=== PATIENT | male | born 1950 | race Caucasian/White ===

== ENCOUNTER 2017-08-27 13:36 | Inpatient (IN) | payer MEDICARE ==
[~2017-08-27] VITALS: Ht 170.2 cm; Wt 95.8 kg
[2017-08-27] MEDS ORDERED: IV NORMAL SALINE 1,000ML 1,000 ML IV SCH (14:03)
[2017-08-27 14:15] LABS: BASO # 0.1 x10^3/uL (0.0-0.2); BASO % 1 % (0-3); EOS # 0.7 x10^3/uL (0.0-0.7); EOS % 10 % (0-3); HEMATOCRIT 42.5 % (39.0-53.0); LYMPH # 1.6 x10^3/uL (1.0-4.8); LYMPH % 22 % (24-48); MEAN CORPUSCULAR HEMOGLOBIN 30 pg (25-35); MEAN CORPUSCULAR HGB CONC 35 g/dL (31-37); MEAN CORPUSCULAR VOLUME 85 fL (79-100); MONO # 0.6 x10^3/uL (0.0-1.1); MONO % 9 % (0-9); NEUT # 4.2 x10^3uL (1.8-7.7); NEUT % 58 % (31-73); PLATELET COUNT 215 x10^3/uL (140-400); RED BLOOD COUNT 4.98 x10^6/uL (4.30-5.70); RED CELL DISTRIBUTION WIDTH 13.8 % (11.5-14.5); WHITE BLOOD COUNT 7.2 x10^3/uL (4.0-11.0)
[2017-08-27 14:27] LABS: ALBUMIN 3.7 g/dL (3.4-5.0); CALCIUM 8.9 mg/dL (8.5-10.1); CREATININE 0.7 mg/dL (0.7-1.3); DIRECT BILIRUBIN 0.1 mg/dL (0.0-0.2); GFR 112.1; POTASSIUM 4.6 mmol/L (3.5-5.1); TOTAL BILIRUBIN 0.5 mg/dL (0.2-1.0); TOTAL PROTEIN 6.9 g/dL (6.4-8.2)
[2017-08-27] MEDS ORDERED: ONDANSETRON PF 4 MG/2 ML VIAL. IV ONE (14:30)
--- NOTE | 2017-08-27 14:39 | RAD ---
EXAM: CT abdomen/pelvis without contrast. HISTORY: Right flank pain, history of renal stones. TECHNIQUE: Computed tomography of the abdomen and pelvis was performed without intravenous contrast. COMPARISON: None. FINDINGS: Lung windows through the visualized portions of the bases reveal mild atelectasis. Coronary atherosclerotic calcifications are noted. Bone windows reveal no suspicious lesions. There is mild superior endplate depression at L2 which may be chronic or subacute. There are no renal or ureteral calculi. Renal cysts on the right measure up to 2.8 cm. Peripelvic cysts are noted on the left. There is no hydronephrosis or perinephric stranding. There are no clearly solid renal lesions without contrast. The liver, gallbladder, pancreas, adrenal glands and spleen are unremarkable. There are no pathologically enlarged lymph nodes. Small circumscribed foci within the retroperitoneal fat may be normal or indicate small regions of chronic fat necrosis. Vasa deferentia calcifications are usually seen in the setting of diabetes. There is no obstruction. The appendix is not inflamed. Bilateral inguinal hernias are moderate on the right and small on the left. IMPRESSION: 1. No renal or ureteral calculi. 2. Subacute or chronic mild superior plate compression deformity at L2. Correlate for this as a cause of pain. 3. Moderate right and small left inguinal hernias containing only fat. *One or more of the following individualized dose reduction techniques were utilized for this examination: 1. Automated exposure control. 2. Adjustment of the mA and/or kV according to patient size. 3. Use of iterative reconstruction technique.
--- NOTE | 2017-08-27 14:52 | PHYS DOC ---
Past History Past Medical History: Diabetes, GERD, High Cholesterol, Hypertension, Kidney Stones Past Surgical History: Other Alcohol Use: None Drug Use: None Adult General Chief Complaint Chief Complaint: FLANK PAIN HPI HPI 67-year-old male presenting to the emergency department today with left-sided flank pain. His pain is sharp and radiates into his groin from his back. Denies any hematuria. He denies changes in stool pattern. He denies fevers chills has had nausea without vomiting. It is a sharp shooting pain. It was more severe prior to arrival and currently is feeling better. Review of systems is negative for chest pain shortness of breath fevers chills or vomiting. All other review of systems is negative unless otherwise noted in history of present illness. ED course: 59-year-old male with a history of kidney stones presenting the emergency department today with what he states is "the same as my previous kidney stone". Upon arrival the patient is afebrile with a normal heart rate. Pertinent physical exam findings show mild left CVA tenderness without any abdominal tenderness. Blood work obtained along with urine and CT the abdomen pelvis. CT abd pelvis shows no signs of stones. On reexamination the patient continues to have pain. We redosed the patient's pain medications. I discussed the case with Dr. Logan who accepted the patient for admission to our hospital. I will add on a CT angiogram of the patient's abdomen which Dr. Kendall agrees to follow-up on. We'll obtained a bed for the patient in the hospital for further evaluation workup and care. Review of Systems Review of Systems SEE ABOVE. Current Medications Current Medications Current Medications Medications (Trade) Dose Ordered Sig/Cassandra Start Time Stop Time Status Last Admin Dose Admin Fentanyl Citrate (Fentanyl 2ml Vial) 25 mcg PRN Q15MIN PRN 08/27/17 14:15 08/28/17 14:14 08/27/17 14:34 25 MCG Ondansetron HCl (Zofran) 4 mg 1X ONCE 08/27/17 14:30 08/27/17 14:31 DC 08/27/17 14:34 4 MG Sodium Chloride 1,000 ml @ 1,000 mls/hr Q1H 08/27/17 14:03 08/27/17 15:02 08/27/17 14:34 1,000 MLS/HR Allergies Allergies Allergies Coded Allergies Type Severity Reaction Last Updated Verified No Known Drug Allergies 10/21/16 No Physical Exam Physical Exam SEE ABOVE Constitutional: Well developed, well nourished, no acute distress, non-toxic appearance. HENT: Normocephalic, atraumatic, bilateral external ears normal, oropharynx moist, no oral exudates, nose normal. [] Eyes: PERRLA, EOMI, conjunctiva normal, no discharge. [] Neck: Normal range of motion, no tenderness, supple, no stridor. Cardiovascular:Heart rate regular rhythm, no murmur [] Lungs & Thorax: Bilateral breath sounds clear to auscultation Abdomen: Bowel sounds normal, soft, no tenderness, no masses, no pulsatile masses. [] Skin: Warm, dry, no erythema, no rash. [] Back: No tenderness midline, left CVA tenderness. Extremities: No tenderness, no cyanosis, no clubbing, ROM intact, no edema. [] Neurologic: Alert and oriented X 3, normal motor function, normal sensory function, no focal deficits noted. [] Psychologic: Affect normal, judgement normal, mood normal. [] Current Patient Data Vital Signs Vital Signs Date Time Temp Pulse Resp B/P (MAP) Pulse Ox O2 Delivery O2 Flow Rate FiO2 08/27/17 14:34 20 98 08/27/17 13:36 98.0 96 Room Air Lab Results Laboratory Tests Test 08/27/17 14:00 White Blood Count 7.2 x10^3/uL (4.0-11.0) Red Blood Count 4.98 x10^6/uL (4.30-5.70) Hemoglobin 15.0 g/dL (13.0-17.5) Hematocrit 42.5 % (39.0-53.0) Mean Corpuscular Volume 85 fL (79-100) Mean Corpuscular Hemoglobin 30 pg (25-35) Mean Corpuscular Hemoglobin Concent 35 g/dL (31-37) Red Cell Distribution Width 13.8 % (11.5-14.5) Platelet Count 215 x10^3/uL (140-400) Neutrophils (%) (Auto) 58 % (31-73) Lymphocytes (%) (Auto) 22 % (24-48) L Monocytes (%) (Auto) 9 % (0-9) Eosinophils (%) (Auto) 10 % (0-3) H Basophils (%) (Auto) 1 % (0-3) Neutrophils # (Auto) 4.2 x10^3uL (1.8-7.7) Lymphocytes # (Auto) 1.6 x10^3/uL (1.0-4.8) Monocytes # (Auto) 0.6 x10^3/uL (0.0-1.1) Eosinophils # (Auto) 0.7 x10^3/uL (0.0-0.7) Basophils # (Auto) 0.1 x10^3/uL (0.0-0.2) Sodium Level 138 mmol/L (136-145) Potassium Level 4.6 mmol/L (3.5-5.1) Chloride Level 104 mmol/L (98-107) Carbon Dioxide Level 23 mmol/L (21-32) Anion Gap 11 (6-14) Blood Urea Nitrogen 19 mg/dL (8-26) Creatinine 0.7 mg/dL (0.7-1.3) Estimated GFR (Cockcroft-Gault) 112.1 Glucose Level 285 mg/dL (70-99) H Calcium Level 8.9 mg/dL (8.5-10.1) Total Bilirubin 0.5 mg/dL (0.2-1.0) Direct Bilirubin 0.1 mg/dL (0.0-0.2) Aspartate Amino Transferase (AST) 27 U/L (15-37) Alanine Aminotransferase (ALT) 36 U/L (16-63) Alkaline Phosphatase 107 U/L (46-116) Total Protein 6.9 g/dL (6.4-8.2) Albumin 3.7 g/dL (3.4-5.0) Lipase 268 U/L (73-393) EKG EKG [] Radiology/Procedures Radiology/Procedures [] Course & Med Decision Making Course & Med Decision Making Pertinent Labs and Imaging studies reviewed. (See chart for details) [] Dragon Disclaimer Dragon Disclaimer This electronic medical record was generated, in whole or in part, using a voice recognition dictation system. Departure Departure: Impression: Primary Impression: Flank pain Disposition: ADMITTED INPATIENT Condition: IMPROVED Referrals: PCP,UNKNOWN (PCP) Scripts Hydrocodone Bit/Acetaminophen (HYDROCODONE-APAP 5-325 ) 1 Each Tablet 1 TAB PO PRN Q6HRS Y for PAIN, #10 TAB 0 Refills Prov: DB ROGEL MD 08/27/17 DB ROGEL MD Aug 27, 2017 14:52
[2017-08-27 16:15] LABS: CLARITY,URINE CLEAR; COLOR,URINE YELLOW
[2017-08-27] MEDS ORDERED: HYDROmorphone PF 1 MG/ML DISP.SYRIN IM ONE (16:15)
[2017-08-27 16:16] LABS: BACTERIA,URINE 0 /HPF (0-FEW); BILIRUBIN,URINE NEG (NEG); GLUCOSE,URINE >=1000 mg/dL (NEG); NITRITE,URINE NEG (NEG); RBC,URINE OCC /HPF (0-2); UROBILINOGEN,URINE 0.2 mg/dL (0.2 mg/dL); WBC,URINE OCC /HPF (0-4)
[2017-08-27 16:17] LABS: HYALINE CASTS, URINE FEW /HPF
[2017-08-27] MEDS ORDERED: HYDR-2758 PO (16:23)
[2017-08-27] MEDS ORDERED: ONDANSETRON PF 4 MG/2 ML VIAL. IV PRN (18:00)
[2017-08-27] MEDS ORDERED: CONTRAST GIVEN MC PRN (18:30)
[2017-08-27] MEDS ORDERED: IOHEXOL 300 MG/ML 75 ML VIAL. IV ONE (19:00)
--- NOTE | 2017-08-27 20:07 | RAD ---
CTA of the abdomen and pelvis with contrast 08/27/2017 CLINICAL HISTORY: Left-sided back and groin pain. TECHNIQUE: After the intravenous administration of 75 cc of Omnipaque 300, contiguous, 0.625 mm axial sections were obtained through the abdomen and pelvis. Multiplanar 3-D and volume rendered 3-D reconstructed images were obtained. One or more of the following individualized dose reduction techniques were utilized for this study: 1. Automated exposure control. 2. Adjustment of the mA and/or kV according to patient size. 3. Use of iterative reconstruction technique. Findings: Images through the lung bases demonstrate minimal dependent subsegmental atelectasis bilaterally. The liver parenchyma has a decreased attenuation consistent with mild fatty infiltration. The spleen, pancreas, and adrenal glands are within normal limits. Low-attenuation lesions are seen involving both kidneys. These measure 5 mm to 3.6 cm in size. They likely represent cysts. The gallbladder is contracted. No free fluid or free air is seen within the abdomen. Air and stool seen throughout the colon. There is no evidence of bowel obstruction. The appendix is well-visualized and is within normal limits. Images through the pelvis was demonstrate the urinary bladder distended with urine. No free fluid is seen. Minimal S-shaped curvature of the thoracolumbar spine is noted. Degenerative changes are seen involving the thoracic and throughout the lumbar spine and both hips. CTA images demonstrate mild to moderate scattered atherosclerotic plaque formation involving the abdominal aorta and its branches. The abdominal aorta tapers normally. Solitary renal arteries are seen bilaterally. There are patent. The origins of the celiac trunk, superior mesenteric artery and inferior mesenteric artery are patent. Mild to moderate scattered atherosclerotic plaque formation is seen involving the common iliac arteries and their branches. No area of stenosis or occlusion is seen. IMPRESSION: No acute abnormality is seen. Electronically signed by: Samir Rothman MD (08/27/2017 8:04 PM) [facility]
[2017-08-27] MEDS ORDERED: LIRA0.6P2 SQ (20:55)
[2017-08-27] MEDS ORDERED: ATOR40TA59 PO (20:55)
[2017-08-27] MEDS ORDERED: METF10002 PO (20:55)
[2017-08-27] MEDS ORDERED: GLIM4TAB2 PO (20:55)
[2017-08-27] MEDS ORDERED: LISI-334 PO (20:55)
[2017-08-27] MEDS ORDERED: METO50TA29 PO (20:56)
[2017-08-27] MEDS ORDERED: INSU100I13 SQ (20:56)
[2017-08-27] MEDS ORDERED: CANA300T PO (20:56)
[2017-08-27] MEDS ORDERED: ASPI81TA50 PO (20:57)
[2017-08-27] MEDS ORDERED: OMEP40CA5 PO (20:57)
[2017-08-27] MEDS ORDERED: INSULIN ASPART 300 UNITS/3 ML INSULN.PEN SQ ONE (21:00)
[2017-08-27 21:04] VITALS: BP 148/63
[2017-08-27] MEDS: IV NORMAL SALINE 1,000ML 1,000 ML IV SCH (21:16)
[2017-08-27] MEDS ORDERED: Influenza vaccine per PROTOCOL. MC PRN (22:00)
[2017-08-28] MEDS: MORPHINE SULFATE 2 MG/ML DISP.SYRIN. IV PRN ×3 (00:18→08:45)
[2017-08-28 04:49] VITALS: BP 148/63
[2017-08-28] MEDS: IV NORMAL SALINE 1,000ML 1,000 ML IV SCH ×2 (04:55→15:16)
[2017-08-28 05:48] VITALS: BP 145/68
[2017-08-28 06:38] LABS: BASO % 1 % (0-3); EOS # 0.3 x10^3/uL (0.0-0.7); EOS % 6 % (0-3); HEMATOCRIT 41.4 % (39.0-53.0); HEMOGLOBIN 14.4 g/dL (13.0-17.5); LYMPH # 0.9 x10^3/uL (1.0-4.8); LYMPH % 15 % (24-48); MEAN CORPUSCULAR HEMOGLOBIN 30 pg (25-35); MEAN CORPUSCULAR HGB CONC 35 g/dL (31-37); MEAN CORPUSCULAR VOLUME 86 fL (79-100); MONO # 0.4 x10^3/uL (0.0-1.1); MONO % 7 % (0-9); NEUT # 4.4 x10^3uL (1.8-7.7); NEUT % 72 % (31-73); PLATELET COUNT 170 x10^3/uL (140-400); RED BLOOD COUNT 4.81 x10^6/uL (4.30-5.70); RED CELL DISTRIBUTION WIDTH 13.6 % (11.5-14.5); WHITE BLOOD COUNT 6.1 x10^3/uL (4.0-11.0)
[2017-08-28 06:49] LABS: CALCIUM 8.2 mg/dL (8.5-10.1); CREATININE 0.6 mg/dL (0.7-1.3); POTASSIUM 4.2 mmol/L (3.5-5.1)
[2017-08-28] MEDS: PANTOPRAZOLE 40 MG TABLET. PO SCH (07:58)
[2017-08-28] MEDS: GLIMEPIRIDE 2 MG TABLET PO SCH ×2 (07:58→16:56)
[2017-08-28] MEDS: LISINOPRIL 20 MG TABLET PO SCH (07:58)
[2017-08-28] MEDS: METOPROLOL SUCC 24HR ER 50 MG TAB.ER.24H. PO SCH (07:58)
[2017-08-28] MEDS: ASPIRIN ENTERIC COATED 81 MG TABLET.DR. PO SCH (07:58)
[2017-08-28] MEDS ORDERED: FLU VACC QS2017-18 (36MOS+)/PF 0.5 ML SYRINGE. VAX IM ONE (09:00)
[2017-08-28] MEDS: NON FORMULARY ITEM (Canagliflozin (Invokana) 300 MG) PO SCH (09:00)
[2017-08-28] MEDS: NON FORMULARY ITEM (Liraglutide (Victoza 3-Pak) 1.8 MG) SQ SCH (09:00)
[2017-08-28 10:50] VITALS: BP 148/67
[2017-08-28] MEDS: HYDROmorphone PF 2 MG/ML VIAL IV PRN (15:16)
[2017-08-28 15:17] VITALS: BP 178/73
[2017-08-28] MEDS: ACETAMINOPHEN 325 MG TABLET PO PRN (15:48)
--- NOTE | 2017-08-28 17:51 | HP ---
ADMIT DATE: 08/27/2017 HISTORY OF PRESENT ILLNESS: The patient is a 67-year-old male patient who came to the emergency room yesterday complaining of left-sided flank pain, sharp, radiating into his groin from his back to his left testicle. He denied any hematuria. Denied any changes in stool pattern. He denied any fever, chills, or rigors. It is more severe prior to arrival and currently slightly improved by the time he arrived to the emergency room. He described it as similar two previous episodes of nephrolithiasis during which he was admitted to this hospital, also in [place]. Patient was extensively investigated in the emergency room. He has no leukocytosis. His kidney function was normal. The urinalysis was basically unremarkable. There is no rbc's, no wbc's, and no bacteria. He has had a CT scan, which was basically unremarkable and specifically did not show any renal or ureteral calculi. She has subacute or chronic mild superior plate compression deformity at the L2 and moderate right and small left inguinal hernia containing only fat. The patient was admitted for pain control. We did a CT angio of the abdomen and pelvis and basically this showed no acute abnormalities seen. PAST MEDICAL HISTORY: Multiple episodes of nephrolithiasis, has type 2 diabetes, bronchial asthma, coronary artery disease status post PCI and stent deployment x4, hyperlipidemia, hypertension, gastric ulcers, benign prostatic hypertrophy. PAST SURGICAL HISTORY: Significant for stenting, has had cystoscopy, retrograde pyelography, and retrieval of stones, tonsillectomy, lipoma resection, esophagogastroduodenoscopy, and colonoscopy. ALLERGIES: He has no known drug allergies. MEDICATIONS: He is currently on following medications: He is on aspirin 81 mg once a day, atorvastatin 40 mg at bedtime. He is on Invokana 300 mg daily, glimepiride 4 mg twice a day. He is on Lantus insulin 30 units at bedtime, Victoza 1.8 mg subcutaneously daily, lisinopril 20 mg once a day, metformin 1000 mg twice a day, metoprolol succinate 50 mg once a day, omeprazole 40 mg once a day. FAMILY HISTORY: He has 2 brothers who are younger. One sister, older, has type 2 diabetes. His father at age of 83 because of bronchial asthma, COPD, and cancer. Mother at the age of 94 because of CVA. SOCIAL HISTORY: He is , has a son and daughter. He never smoked, does not drink alcohol or recreational drugs. 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 REVIEW OF SYSTEMS: The patient denied any blurring of vision, cataract, glaucoma or macular degeneration. Denied any earache, tinnitus, but he has severe sensorineural deafness. Denied any nosebleeds. He has stuffy nose, but no postnasal drip. Denied any sore throat, sore tongue, toothache, hoarseness of voice or difficulty swallowing. Denied any nausea, vomiting, diarrhea or constipation. Denied any hematemesis, melena, or hematochezia. Denied any dysuria, frequency or hematuria. He did complain of nocturia, postvoid dribbling, hesitancy and urgency, as well as nocturia. Denied any chest pain, shortness of breath, orthopnea, paroxysmal nocturnal dyspnea. Denied any cough, phlegm or hemoptysis. The only complaint is pain that started in left flank area going down to the groin and particularly to his left testicle. PHYSICAL EXAMINATION: GENERAL: On arrival to the emergency room, he looked well and was clearly in no apparent respiratory distress. No pallor, jaundice, cyanosis. No lymphadenopathy, no thyromegaly. No jugular venous distension. No lower limb edema. VITAL SIGNS: His heart rate was 96, blood pressure was 120/72, temperature was 98, respiratory rate 20, and oxygen saturation was 97%. HEAD, EYES, EARS, NOSE, AND THROAT: Showed normocephalic, atraumatic. NECK: Supple. HEART: Showed normal first and second heart sounds with no gallop, rub or murmur. CHEST: Clear to auscultation. No crepitation or rhonchi. ABDOMEN: Distended, soft, nontender. No guarding or rigidity. No organomegaly. All hernial orifices intact. Bowel sounds normal. There is no tenderness in the left costophrenic angle. NEUROLOGIC: He was awake, alert, responding appropriately. Cranial nerves intact. EXTREMITIES: She moves extremities without difficulty. He ambulates without assistance or assistive devices. LABORATORY DATA: On admission showed a white cell count of 7200, hemoglobin 15, hematocrit 42, MCV 85 and platelet count of 215,000 with normal manual differential. His chemistry showed a serum sodium of 138, potassium 4.6, chloride 104, bicarbonate 23, anion gap of 11, BUN 19, creatinine 0.7, estimated GFR was 112, glucose was 285, calcium was 8.9. Total bilirubin, AST, ALT, alkaline phosphatase were normal. His total protein was 6.9, albumin was 3.7. Urinalysis showed the urine was yellow, clear with a pH of 5, specific gravity of 1.020. The urine was negative for gluten. There was large amount of glucose, small amount of ketones. The urine was negative for blood, nitrite, leukocyte esterase. There was occasional rbc's, occasional wbc's, and no bacteria. DIAGNOSTIC DATA: As I stated earlier, he has a CT scan of the abdomen and pelvis, which showed no evidence of renal or ureteral calculi, subacute or chronic mild superior endplate compression deformity at L2 and moderate right and small left inguinal hernia containing only fat and a CT angio of the abdomen and pelvis. Basically, it demonstrated [id number] scattered atherosclerotic plaque formation involving the abdominal aorta and its branches. The abdominal aorta tapers normally. The renal arteries are seen bilaterally. They are patent. The origin of the celiac trunk, superior mesenteric artery, and inferior mesenteric artery are patent. He has [id number] scattered atherosclerotic plaque formation seen involving the common iliac arteries and their branches. No areas of stenosis or occlusion is seen. ASSESSMENT AND PLAN: The patient was admitted, started on IV fluid. Continue on his medication. Continue on pain medication and antiemetics. We will obviously follow him closely and hold his metformin as he has received contrast and monitor his progress and decide on further management accordingly. GEORGE HOPKINS MD DR: ANETA/kd JOB#: [id number] / [id number]
[2017-08-28 19:33] VITALS: BP 156/78
[2017-08-28 19:41] LABS: BACTERIA,URINE 0 /HPF (0-FEW); BILIRUBIN,URINE NEG (NEG); CLARITY,URINE CLEAR; COLOR,URINE STRAW; GLUCOSE,URINE >=1000 mg/dL (NEG); NITRITE,URINE NEG (NEG); RBC,URINE 0 /HPF (0-2); SQUAMOUS EPITHELIAL CELL,UR OCC /LPF; UROBILINOGEN,URINE 0.2 mg/dL (0.2 mg/dL); WBC,URINE 0 /HPF (0-4)
[2017-08-28] MEDS: INSULIN ASPART 300 UNITS/3 ML INSULN.PEN SQ SCH (20:23)
[2017-08-28] MEDS ORDERED: INSULIN DETEMIR 300 UNITS/3 ML INSULN.PEN. SQ SCH (21:00)
[2017-08-28] MEDS ORDERED: ATORVASTATIN CALCIUM 20 MG TABLET PO SCH (21:00)
[2017-08-28] MEDS ORDERED: TAMSULOSIN 0.4 MG CAP.ER.24H. PO SCH (21:00)
[2017-08-28 23:12] VITALS: BP 132/73
--- NOTE | 2017-08-28 23:51 | PN ---
DATE: 08/28/2017 SUBJECTIVE: The patient is resting slightly propped up, continued to complain of pain in left flank, radiating down to left groin and left testicle. I spoke with Dr. Virginia Martínez, the urologist orientation & mobility specialist, for [place] and basically after explaining all the findings, she did not feel that the patient was transferred because she cannot do anything urological about it, but she recommended repeating all his labs tomorrow morning and also ultrasound and actually she left her cell phone to call her if he needs to be seen tomorrow. OBJECTIVE: GENERAL: When I examined him today, he looked well and was clearly in no apparent respiratory distress, pale, but no jaundice, cyanosis, or thyromegaly. NECK: No jugular venous distension, no limb edema. VITAL SIGNS: His heart rate was 60, blood pressure was 178/73, temperature was 97, respiratory rate 20, and oxygen saturation was 95%. The rest of clinical exam is stable and has not really changed. LABORATORY DATA: His white cell count is down to 6100, hemoglobin 14.4, hematocrit 41, MCV 86 and platelet count of 170,000. His chemistry showed serum sodium 139, potassium 4.2, chloride 106, bicarbonate 26, BUN of 7, creatinine was 0.6, estimated GFR was 134 mL per minute, his glucose at 264, calcium was 8.2. ASSESSMENT: This is a 67-year-old complaining of left flank pain radiating to left groin and left testicle. CT scan and urinalysis finding are unremarkable. PLAN: My plan is to repeat his labs tomorrow as well as urinalysis and decide the further management accordingly. GEORGE HOPKINS MD DR: ANETA/kd JOB#: [id number] / [id number]
[2017-08-29] MEDS: HYDROmorphone PF 2 MG/ML VIAL IV PRN ×2 (00:23→04:48)
[2017-08-29 05:09] VITALS: BP 128/67
[2017-08-29 05:57] LABS: HEMATOCRIT 40.2 % (39.0-53.0); RED BLOOD COUNT 4.71 x10^6/uL (4.30-5.70); RED CELL DISTRIBUTION WIDTH 13.5 % (11.5-14.5); WHITE BLOOD COUNT 5.9 x10^3/uL (4.0-11.0)
[2017-08-29 06:10] LABS: ALBUMIN 3.1 g/dL (3.4-5.0); ALBUMIN/GLOBULIN RATIO 0.9 (1.0-1.7); CALCIUM 8.5 mg/dL (8.5-10.1); CREATININE 0.5 mg/dL (0.7-1.3); GFR 165.4; POTASSIUM 3.5 mmol/L (3.5-5.1); TOTAL BILIRUBIN 0.6 mg/dL (0.2-1.0); TOTAL PROTEIN 6.4 g/dL (6.4-8.2)
[2017-08-29] MEDS: INSULIN ASPART 300 UNITS/3 ML INSULN.PEN SQ SCH ×2 (07:30→12:11)
[2017-08-29] MEDS: METOPROLOL SUCC 24HR ER 50 MG TAB.ER.24H. PO SCH (08:01)
[2017-08-29] MEDS: GLIMEPIRIDE 2 MG TABLET PO SCH (08:01)
[2017-08-29] MEDS: ASPIRIN ENTERIC COATED 81 MG TABLET.DR. PO SCH (08:02)
[2017-08-29] MEDS: LISINOPRIL 20 MG TABLET PO SCH (08:02)
[2017-08-29] MEDS: PANTOPRAZOLE 40 MG TABLET. PO SCH (08:02)
[2017-08-29] MEDS: NON FORMULARY ITEM (Canagliflozin (Invokana) 300 MG) PO SCH (08:05)
[2017-08-29] MEDS: NON FORMULARY ITEM (Liraglutide (Victoza 3-Pak) 1.8 MG) SQ SCH (08:05)
[2017-08-29] MEDS: ACETAMINOPHEN 325 MG TABLET PO PRN (08:09)
--- NOTE | 2017-08-29 10:06 | RAD ---
RENAL COMPLETE BILATERAL History:Pain in left flank area radiates to groin area Comparison: CT 08/27/2017 Findings:Multiple sonographic images of the kidneys and urinary bladder are submitted. Right kidney measured 12.9 x 6.3 x 7.3 cm. Left kidney measured 12.3 x 6.5 x 6.7 cm. There is no hydronephrosis of either kidney. Urinary bladder morphology is within normal limits. There are multiple renal cysts bilaterally, at least 3 on the right and 4 on the left. Largest on the right measures up to 2.7 cm. Largest on the left measures up to 1.8 cm. Impression: 1.There is no hydronephrosis of either kidney. There are bilateral renal cysts.
[2017-08-29 11:12] VITALS: BP 123/65
--- NOTE | 2017-08-29 13:53 | DS ---
DATE OF DISCHARGE: 08/29/2017 DISCHARGE/TRANSFER SUMMARY HOSPITAL COURSE: This is a 67-year-old male patient who was admitted with intractable left flank pain that according to him radiates down to the left groin and left testicle. However, CT scan of the abdomen and pelvis showed no evidence of any renal or ureteral calculi. His urinalysis was unremarkable, done twice. There was no hematuria and ultrasound again showed no evidence of any hydronephrosis. I did speak with Dr. Virginia Martínez, the urologist non clinical advisor at [facility] and she did not feel that there is any reason for him to be transferred. His CT scan; however, showed that he has compression deformity at L2 that might have been the cause of this pain and therefore, a decision was made to transfer him to [facility] to arrange for MRI of the lumbar spine and to consult either interventional radiologist or neurosurgeon if there is any evidence of radiculopathy causing the pain. PHYSICAL EXAMINATION: GENERAL: When I examined him this afternoon, he looked well and was clearly in no apparent respiratory distress, pale, but no jaundice, cyanosis, or thyromegaly. No jugular venous distention. No limb edema. VITAL SIGNS: His heart rate was 70, blood pressure 123/65, temperature was 98.3, respiratory rate 20, and oxygen saturation was 94%. HEAD, EYES, EARS, NOSE AND THROAT: Showed normocephalic, atraumatic. NECK: Supple. HEART: Showed normal first and second heart sounds with no gallop, rub or murmur. CHEST: Clear to auscultation. No crepitation or rhonchi. ABDOMEN: Distended, soft, nontender. NEUROLOGIC: He was awake, alert, responding appropriately. All cranial nerves are intact. He moves extremities without difficulty. He ambulates without assistance or assistive devices. His intake was 1440, output was 900. LABORATORY DATA: His lab work this morning showed a white cell count 5900, hemoglobin 14, hematocrit 40, MCV 85 and platelet count 217. His serum sodium 143, potassium 3.5, chloride 106, bicarbonate 27, anion gap of 10, BUN 11, creatinine 0.5, estimated GFR was 165 mL per minute. His glucose was 98, calcium was 8.5. Total bilirubin, AST, ALT, alkaline phosphatase were normal. Total protein 6.4, albumin 3.1. Urinalysis was essentially unremarkable. The urine was straw colored, clear with a pH of 5, specific gravity of 1.010. The urine was negative for protein. There was large amount of glucose. There was large amount of ketones, negative for blood, nitrite and leukocyte esterase. There are no RBCs, no WBCs, and no bacteria. DIAGNOSTIC DATA: His CT scan of the abdomen and pelvis showed that there is no renal or ureteral calculi. However, he has subacute or chronic mild superior plate compression deformity at L2. His CT angio of the abdomen and pelvis was unremarkable, it showed no acute abnormality. It demonstrated [id number] scattered atherosclerotic plaque formation involving the abdominal aorta and its branches. However, the abdominal aorta tapers normally, solitary renal arteries are seen bilaterally. They are patent. The origin of the celiac trunk, superior mesenteric artery and inferior mesenteric artery are patent, there are [id number] scattered atherosclerotic plaque formation is seen involving the common iliac arteries and their branches. We did re-ultrasound of both kidneys, which showed there is no evidence of hydronephrosis of either kidney. There are bilateral renal cysts. DISCHARGE MEDICATIONS: The patient was transferred to [facility] to continue with hydromorphone 2 mg IV every 3 hours, aspirin 81 mg once a day, atorvastatin calcium 40 mg once a day, Invokana 300 mg once a day, glimepiride 4 mg twice a day, Lantus insulin 30 units at bedtime, Victoza 1.8 mg subcutaneously daily, lisinopril 20 mg once a day, metformin 1000 mg twice a day, metoprolol succinate 50 mg once a day, omeprazole 40 mg once a day. FINAL DISCHARGE DIAGNOSES: 1. Intractable low back pain. 2. Multiple episodes of nephrolithiasis. 3. Type 2 diabetes mellitus. 4. Bronchial asthma. 5. Coronary artery disease, status post percutaneous coronary intervention and stent deployment x 4. 6. Hyperlipidemia. 7. Hypertension. 8. Gastric ulcers. 9. Benign prostatic hypertrophy. GEORGE HOPKINS MD DR: ANETA/kd JOB#: [id number] / [id number]
[2017-08-30] MEDS ORDERED: metFORMIN 500 MG TABLET PO SCH (08:00)
== END 2017-08-29 13:45 | disposition short-term general hospital (02) | DRG 552 ==
LOC: ER 13:36 → 1 SOUTH 17:50
PROVIDERS: ADMIT Internal Medicine; ATTEND Internal Medicine
DX: M43.8X6 Other specified deforming dorsopathies, lumbar region (principal); N28.1 Cyst of kidney, acquired; E11.9 Type 2 diabetes mellitus without complications; E78.5 Hyperlipidemia, unspecified; I10 Essential (primary) hypertension; I25.10 Atherosclerotic heart disease of native coronary artery without angina pectoris; J45.909 Unspecified asthma, uncomplicated; K21.9 Gastro-esophageal reflux disease without esophagitis; K25.9 Gastric ulcer, unspecified as acute or chronic, without hemorrhage or perforation; K40.90 Unilateral inguinal hernia, without obstruction or gangrene, not specified as recurrent; N40.0 Benign prostatic hyperplasia without lower urinary tract symptoms; Z82.3 Family history of stroke; Z82.5 Family history of asthma and other chronic lower respiratory diseases; Z83.3 Family history of diabetes mellitus; Z87.11 Personal history of peptic ulcer disease; Z87.442 Personal history of urinary calculi; Z95.5 Presence of coronary angioplasty implant and graft; Z90.49 Acquired absence of other specified parts of digestive tract
CPT/HCPCS: 36415; 74174; 74176; 76770; 80048; 80053; 80076; 81001; 82947; 83690; 85025; 85027; 90686; 96361; 96372; 96374; 96375; 96376; J1170; J1815; J2270; J2405; J3010; Q9967; 99285-25; J7030

== ENCOUNTER 2019-12-16 12:10 | Emergency (ER) | payer MEDICARE ==
[~2019-12-16] VITALS: Ht 170.2 cm; Wt 93.6 kg
[~2019-12-16 12:10] MED LIST: ASPI81TA50 PO; ATOR40TA59 PO; CANA300T PO; GLIM4TAB8 PO; HYDR-2155 PO; INSU100I13 SQ; LIRA0.6P2 SQ; LISI-334 PO; METF10007 PO; METO50TA29 PO; OMEP40CA45 PO
[2019-12-16 12:31] VITALS: BP 92/67
--- NOTE | 2019-12-16 13:15 | PHYS DOC ---
Past History Past Medical History: Diabetes, GERD, High Cholesterol, Hypertension, Kidney Stones Past Surgical History: Other Additional Past Surgical Histo: 6 stents Alcohol Use: None Drug Use: None Adult General Chief Complaint Chief Complaint: DIZZY/LIGHT HEADED HPI HPI Patient is a 69 year old male with history of hypertension, dyslipidemia, GERD, diabetes mellitus, renal artery disease with stent placement who presents with complaining of dizziness and weakness. Patient states she had a normal day yesterday and this morning when 2 is sharp but felt dizzy with generalized weakness while he was trying to go on scafold. Patient denies focal neuro deficit, fever and chills, chest pain and shortness of breath, history of recent dehydration of the same problem. Patient went to urgent care and sent to ER because of blood pressure of 90s. Patient had blood sugar of 89 at arrival to ER that gradually increased to 109 without treatment. Review of Systems Review of Systems Constitutional: Denies fever or chills [] Eyes: Denies change in visual acuity, redness, or eye pain [] HENT: Denies nasal congestion or sore throat [] Respiratory: Denies cough or shortness of breath [] Cardiovascular: No additional information not addressed in HPI [] GI: Denies abdominal pain, nausea, vomiting, bloody stools or diarrhea [] : Denies dysuria or hematuria [] Musculoskeletal: Denies back pain or joint pain [] Integument: Denies rash or skin lesions [] Neurologic: Denies headache, focal weakness or sensory changes [] Endocrine: Denies polyuria or polydipsia [] All other systems were reviewed and found to be within normal limits, except as documented in this note. Allergies Allergies Allergies Coded Allergies Type Severity Reaction Last Updated Verified No Known Drug Allergies 10/21/16 No Physical Exam Physical Exam Constitutional: Well developed, well nourished, no acute distress, non-toxic appearance. [] HENT: Normocephalic, atraumatic, bilateral external ears normal, oropharynx moist, no oral exudates, nose normal. [] Eyes: PERRLA, EOMI, conjunctiva normal, no discharge. [] Neck: Normal range of motion, no tenderness, supple, no stridor. [] Cardiovascular:Heart rate regular rhythm, no murmur [] Lungs & Thorax: Bilateral breath sounds clear to auscultation [] Abdomen: Bowel sounds normal, soft, no tenderness, no masses, no pulsatile masses. [] Skin: Warm, dry, no erythema, no rash. [] Back: No tenderness, no CVA tenderness. [] Extremities: No tenderness, no cyanosis, no clubbing, ROM intact, no edema. [] Neurologic: Alert and oriented X 3, normal motor function, normal sensory function, no focal deficits noted. [] Psychologic: Affect normal, judgement normal, mood normal. [] Current Patient Data Vital Signs Vital Signs Date Time Temp Pulse Resp B/P (MAP) Pulse Ox O2 Delivery O2 Flow Rate FiO2 12/16/19 12:31 73 18 92/67 (75) 100 EKG EKG EKG interpreted by me. EKG at 1338 showed sinus bradycardia at rate of 59, normal MT and QT intervals, no acute ST and T-wave elevation. Radiology/Procedures Radiology/Procedures [address] [address] IMAGING REPORT Signed PATIENT: PRAMOD VALERIO ACCOUNT: [id number] : 1950 LOCATION: ER AGE: 69 SEX: M EXAM STATUS: PRE ER ORD. PHYSICIAN: IJEOMA MERLOS MD REASON: generalized weakness and hypotension PROCEDURE: PORTABLE CHEST 1V EXAM: Chest, single view. HISTORY: Weakness. Hypotension. COMPARISON: 08/03/2015 FINDINGS: A frontal view of the chest obtained. There is no infiltrate, pleural effusion or pneumothorax. The heart is normal in size. There is suspected left lower lobe atelectasis. IMPRESSION: No acute pulmonary finding. Electronically signed by: Sadaf Jackson MD (12/16/2019 1:39 PM) [facility] [place] DICTATED AND SIGNED BY: SADAF JACKSON MD DATE: 12/16/19 2189 CC: IJEOMA MERLOS MD; PCP,UNKNOWN ~ Course & Med Decision Making Course & Med Decision Making Pertinent Labs and Imaging studies reviewed. (See chart for details) Evaluation of patient in ER showed 69-year-old male patient with complaining of dizziness and blood pressure of 89 at arrival to ER that improved gradually to 109 and 119 without treatment. Was unremarkable including lactic acid and cardiac enzyme except for magnesium of 1.5 and patient treated with IV ma gnesium. I offered patient hospitalization but patient wanted to go home and follow up with his primary care physician. Patient was advised to increase fluid intake and high magnesium food. I've spoken with the patient and/or caregivers. I've explained the patient's condition, diagnosis and treatment plan based on information available to me at this time. I've answered the patient's and/or caregivers questions and addressed any concerns. The patient and/or caregivers have a good understanding the patient's diagnosis, condition and treatment plan as can be expected at this point. Vital signs have been stabilized. The patient's condition is stable for discharge from the emergency department. The patient will pursue further outpatient evaluation with her primary care provider or other designated consulting physician as outlined in the discharge instructions. Patient and/or caregivers are agreeable to this plan of care and follow-up instructions have been explained in detail. The patient and/or caregivers have received these instructions in written format and expressed understanding of these discharge instructions. The patient and her caregivers are aware that if any significant change in condition or worsening of symptoms should prompt him to immediately return to this of the closest emergency department. If an emergent department is not readily available I would enco urage him to call 911. Risa Disclaimer Dragon Disclaimer This electronic medical record was generated, in whole or in part, using a voice recognition dictation system. Departure Departure: Impression: Primary Impression: Dizziness Additional Impressions: Hypotension Hypomagnesemia Disposition: HOME, SELF-CARE Condition: IMPROVED Referrals: PCP,UNKNOWN (PCP) Patient Instructions: Hypomagnesemia, Hypotension Additional Instructions: Drink more liquids Follow-up with your primary care physician in 2-3 days Return to ER if not getting better Do not take your blood pressure medication a few blood pressures less than 120/80 Problem Qualifiers Additional Impressions: Hypotension Hypotension type: unspecified hypotension type Qualified Codes: I95.9 - Hypotension, unspecified IJEOMA MERLOS MD Dec 16, 2019 13:15
[2019-12-16 13:31] LABS: BASO % 0 % (0-3); EOS # 0.2 x10^3/uL (0.0-0.7); EOS % 5 % (0-3); HEMATOCRIT 37.6 % (39.0-53.0); HEMOGLOBIN 12.7 g/dL (13.0-17.5); LYMPH # 0.8 x10^3/uL (1.0-4.8); LYMPH % 18 % (24-48); MEAN CORPUSCULAR HEMOGLOBIN 30 pg (25-35); MEAN CORPUSCULAR HGB CONC 34 g/dL (31-37); MEAN CORPUSCULAR VOLUME 89 fL (79-100); MONO # 0.5 x10^3/uL (0.0-1.1); MONO % 11 % (0-9); NEUT # 2.8 x10^3uL (1.8-7.7); NEUT % 66 % (31-73); PLATELET COUNT 178 x10^3/uL (140-400); RED BLOOD COUNT 4.23 x10^6/uL (4.30-5.70); RED CELL DISTRIBUTION WIDTH 16.1 % (11.5-14.5); WHITE BLOOD COUNT 4.3 x10^3/uL (4.0-11.0)
--- NOTE | 2019-12-16 13:43 | RAD ---
EXAM: Chest, single view. HISTORY: Weakness. Hypotension. COMPARISON: 08/03/2015 FINDINGS: A frontal view of the chest obtained. There is no infiltrate, pleural effusion or pneumothorax. The heart is normal in size. There is suspected left lower lobe atelectasis. IMPRESSION: No acute pulmonary finding. Electronically signed by: Sadaf Mcintyre MD (12/16/2019 1:39 PM) [facility] [place]
[2019-12-16 13:48] LABS: BILIRUBIN,URINE NEG (NEG); CLARITY,URINE CLEAR; COLOR,URINE YELLOW; GLUCOSE,URINE >=1000 mg/dL (NEG); NITRITE,URINE NEG (NEG); RBC,URINE OCC /HPF (0-2); UROBILINOGEN,URINE 0.2 mg/dL (0.2 mg/dL)
[2019-12-16 13:49] LABS: BACTERIA,URINE 0 /HPF (0-FEW); SQUAMOUS EPITHELIAL CELL,UR OCC /LPF; WBC,URINE OCC /HPF (0-4)
[2019-12-16 14:05] LABS: CALCIUM 9.1 mg/dL (8.5-10.1); CREATININE 0.9 mg/dL (0.7-1.3); GFR 83.4; POTASSIUM 4.4 mmol/L (3.5-5.1)
[2019-12-16 14:19] LABS: ALBUMIN 3.6 g/dL (3.4-5.0); ALBUMIN/GLOBULIN RATIO 1.2 (1.0-1.7); MAGNESIUM 1.5 mg/dL (1.8-2.4); TOTAL BILIRUBIN 0.4 mg/dL (0.2-1.0); TOTAL PROTEIN 6.7 g/dL (6.4-8.2)
[2019-12-16] MEDS ORDERED: MAGNESIUM SULFATE 2GM 50 ML IV ONE ×2 (14:30→14:45)
--- NOTE | 2019-12-17 02:02 | EKG ---
[address] [address] Test Date: 2019-12-16 Test Time: 13:38:34 Pat Name: PRAMOD VALERIO Department: Room: Gender: M [employer]: : 1950 Requested By: IJEOMA MERLOS Order Number: [id number] Reading MD: Measurements Intervals [place] Rate: 59 P: 42 UT: 194 QRS: 18 QRSD: 84 T: 26 QT: 424 QTc: 420 Interpretive Statements SINUS RHYTHM NO SPECIFIC ECG ABNORMALITIES RI6.01 No previous ECG available for comparison
== END 2019-12-16 16:06 | disposition home or self-care (01) ==
LOC: ER 12:10
DX: R42 Dizziness and giddiness (principal); I95.9 Hypotension, unspecified; E83.42 Hypomagnesemia; R53.1 Weakness; I10 Essential (primary) hypertension; E78.5 Hyperlipidemia, unspecified; K21.9 Gastro-esophageal reflux disease without esophagitis; E11.9 Type 2 diabetes mellitus without complications; E78.00 Pure hypercholesterolemia, unspecified; Z87.442 Personal history of urinary calculi
CPT/HCPCS: 36415; 71045; 80053; 81001; 82550; 83605; 83690; 83735; 83880; 84484; 85025; 85379; 85610; 87040; 93005; 96365; 99285; J3475

== ENCOUNTER 2022-02-27 11:35 | Emergency (ER) | payer MEDICARE, BC ==
[~2022-02-27] VITALS: Ht 170.2 cm; Wt 93.6 kg
[~2022-02-27 11:35] MED LIST changes: -LISI-334 PO; +LISI20TA18 PO; -OMEP40CA45 PO; +OMEP40CA7 PO
[2022-02-27] MEDS ORDERED: IV NORMAL SALINE 1,000ML 1,000 ML IV ONE (12:15)
[2022-02-27 12:25] LABS: BASO % 0 % (0-3); EOS # 0.2 x10^3/uL (0.0-0.7); EOS % 3 % (0-3); HEMATOCRIT 37.7 % (39.0-53.0); HEMOGLOBIN 12.8 g/dL (13.0-17.5); LYMPH # 0.9 x10^3/uL (1.0-4.8); LYMPH % 15 % (24-48); MEAN CORPUSCULAR HEMOGLOBIN 30 pg (25-35); MEAN CORPUSCULAR HGB CONC 34 g/dL (31-37); MEAN CORPUSCULAR VOLUME 88 fL (79-100); MONO # 0.4 x10^3/uL (0.0-1.1); MONO % 7 % (0-9); NEUT # 4.6 x10^3uL (1.8-7.7); NEUT % 74 % (31-73); PLATELET COUNT 184 x10^3/uL (140-400); RED BLOOD COUNT 4.28 x10^6/uL (4.30-5.70); WHITE BLOOD COUNT 6.2 x10^3/uL (4.0-11.0)
[2022-02-27 12:32] LABS: CREATININE 1.6 mg/dL (0.7-1.3); GFR 42.7
[2022-02-27 12:45] LABS: ALBUMIN 3.5 g/dL (3.4-5.0); ALBUMIN/GLOBULIN RATIO 1.3 (1.0-1.7); MAGNESIUM 1.7 mg/dL (1.8-2.4); PHOSPHORUS 3.2 mg/dL (2.6-4.7); TOTAL BILIRUBIN 0.7 mg/dL (0.2-1.0); TOTAL PROTEIN 6.2 g/dL (6.4-8.2)
[2022-02-27] MEDS ORDERED: HEPARIN 25,000UTS/250ML PREMIX 250 ML IV PRN (12:45)
[2022-02-27] MEDS ORDERED: HEPARIN for IV BOLUS 10,000 UNIT/10 ML VIAL. IV PRN (12:45)
[2022-02-27] MEDS ORDERED: HEPARIN for IV BOLUS 10,000 UNIT/10 ML VIAL. IV ONE (12:45)
[2022-02-27] MEDS ORDERED: ASPIRIN CHEWABLE 81 MG TABLET. PO ONE (12:45)
--- NOTE | 2022-02-27 12:48 | RAD ---
XR CHEST 1V History: Reason: hypotension / Spl. Instructions: / History: Comparison: December 16, 2019 Findings: No consolidation or pleural effusion. Normal heart size. No pneumothorax. Impression: 1. No acute cardiopulmonary process. Electronically signed by: Chidi Franco DO (02/27/2022 12:46 PM) [id number]
[2022-02-27 13:00] VITALS: BP 80/36
--- NOTE | 2022-02-27 13:00 | PHYS DOC ---
Past History Past Medical History: Diabetes, GERD, High Cholesterol, Hypertension, Kidney Stones Past Surgical History: Other Additional Past Surgical Histo: 6 stents Alcohol Use: None Drug Use: None General Adult EDM: Chief Complaint: HYPOTENSION HPI: HPI: Patient is a 71-year-old male coming in for low blood pressures. Patient checked his blood pressure at home and it was 50/30. Patient states that he normally runs with systolic in the 120s. Patient states that he had he got up this morning he had a slight headache. Patient states he had a bowel movement and left to do some errands. When he went outside he noticed everything was very bright and blurry. Patient states he felt unwell while driving, went to have breakfast but did not get any better. He states he had 1 episode of low blood pressure readings a few weeks ago. Patient history significant for CO in September with 4 stents placed. Patient had initially been getting ready to have a CABG but had a stents placed due to the acute CO. States he has been compliant on his blood thinners. Denies the possibility of taking an extra accidental dose of his blood pressure medications. Review of Systems: Review of Systems: All other systems within normal limits except for as noted in the HPI Current Medications: Current Meds: Current Medications Medications (Trade) Dose Ordered Sig/Cassandra Start Time Stop Time Status Last Admin Dose Admin Aspirin (Aspirin Chewable) 324 mg 1X ONCE 02/27/22 12:45 02/27/22 12:47 DC Dopamine HCl/ Dextrose 250 ml @ 17.55 mls/ hr 1X ONCE 02/27/22 12:45 02/28/22 02:59 Heparin Sodium (Porcine) (Heparin Sodium) 2,350 unit PRN Q6HRS PRN 02/27/22 12:45 Heparin Sodium/ Dextrose 250 ml @ 10 mls/hr CONT PRN 02/27/22 12:45 Sodium Chloride 1,000 ml @ 1,000 mls/hr 1X ONCE 02/27/22 12:15 02/27/22 13:14 02/27/22 12:17 1,000 MLS/HR Allergies: Allergies: Allergies Coded Allergies Type Severity Reaction Last Updated Verified No Known Drug Allergies 10/21/16 No Physical Exam: PE: Constitutional: Well developed, well nourished, no acute distress, non-toxic appearance. [] HENT: Normocephalic, atraumatic, bilateral external ears normal, oropharynx moist, no oral exudates, nose normal. [] Eyes: PERRLA, EOMI, conjunctiva normal, no discharge. [] Neck: Normal range of motion, no tenderness, supple, no stridor. [] Cardiovascular:Heart rate regular rhythm, no murmur [] Lungs & Thorax: Bilateral breath sounds clear to auscultation [] Abdomen: Bowel sounds normal, soft, no tenderness, no masses, no pulsatile masses. [] Skin: Warm, dry, no erythema, no rash. [] Back: No tenderness, no CVA tenderness. [] Extremities: No tenderness, no cyanosis, no clubbing, ROM intact, no edema. [] Neurologic: Alert and oriented X 3, normal motor function, normal sensory function, no focal deficits noted. [] Psychologic: Affect normal, judgement normal, mood normal. [] Current Patient Data: Labs: Laboratory Tests Test 02/27/22 12:00 White Blood Count 6.2 x10^3/uL (4.0-11.0) Red Blood Count 4.28 x10^6/uL (4.30-5.70) L Hemoglobin 12.8 g/dL (13.0-17.5) L Hematocrit 37.7 % (39.0-53.0) L Mean Corpuscular Volume 88 fL (79-100) Mean Corpuscular Hemoglobin 30 pg (25-35) Mean Corpuscular Hemoglobin Concent 34 g/dL (31-37) Red Cell Distribution Width 15.0 % (11.5-14.5) H Platelet Count 184 x10^3/uL (140-400) Neutrophils (%) (Auto) 74 % (31-73) H Lymphocytes (%) (Auto) 15 % (24-48) L Monocytes (%) (Auto) 7 % (0-9) Eosinophils (%) (Auto) 3 % (0-3) Basophils (%) (Auto) 0 % (0-3) Neutrophils # (Auto) 4.6 x10^3uL (1.8-7.7) Lymphocytes # (Auto) 0.9 x10^3/uL (1.0-4.8) L Monocytes # (Auto) 0.4 x10^3/uL (0.0-1.1) Eosinophils # (Auto) 0.2 x10^3/uL (0.0-0.7) Basophils # (Auto) 0.0 x10^3/uL (0.0-0.2) Sodium Level 138 mmol/L (136-145) Potassium Level 5.0 mmol/L (3.5-5.1) Chloride Level 104 mmol/L (98-107) Carbon Dioxide Level 22 mmol/L (21-32) Anion Gap 12 (6-14) Blood Urea Nitrogen 32 mg/dL (8-26) H Creatinine 1.6 mg/dL (0.7-1.3) H Estimated GFR (Cockcroft-Gault) 42.7 BUN/Creatinine Ratio 20 (6-20) Glucose Level 251 mg/dL (70-99) H Calcium Level 9.0 mg/dL (8.5-10.1) Phosphorus Level 3.2 mg/dL (2.6-4.7) Magnesium Level 1.7 mg/dL (1.8-2.4) L Total Bilirubin 0.7 mg/dL (0.2-1.0) Aspartate Amino Transferase (AST) 23 U/L (15-37) Alanine Aminotransferase (ALT) 44 U/L (16-63) Alkaline Phosphatase 74 U/L (46-116) Troponin I High Sensitivity 9 ng/L (4-75) AC-Ftr-O-Type Natriuretic Peptide 423 pg/mL (0-124) H Total Protein 6.2 g/dL (6.4-8.2) L Albumin 3.5 g/dL (3.4-5.0) Albumin/Globulin Ratio 1.3 (1.0-1.7) Vital Signs: Vital Signs Date Time Temp Pulse Resp B/P (MAP) Pulse Ox O2 Delivery O2 Flow Rate FiO2 02/27/22 12:05 98.0 67 16 65/44 (51) 96 Room Air EKG: EKG: EKG shows slight ST elevations in inferior leads with T wave inversion in aVL. Discussed with institute director, unclear if there is a STEMI or benign early repol. ST elevation in inferior leads not present in previous ECG from 12-16-2019 [] Radiology/Procedures: Radiology/Procedures: [address] [address] IMAGING REPORT Signed PATIENT: PRAMOD VALERIO ACCOUNT: [id number] : 1950 LOCATION: ER AGE: 71 SEX: M EXAM STATUS: REG ER ORD. PHYSICIAN: REMBERTO LEE MD REASON: hypotension PROCEDURE: PORTABLE CHEST 1V XR CHEST 1V History: Reason: hypotension / Spl. Instructions: / History: Comparison: December 16, 2019 Findings: No consolidation or pleural effusion. Normal heart size. No pneumothorax. Impression: 1. No acute cardiopulmonary process. Electronically signed by: Chidi Franco DO (02/27/2022 12:46 PM) [id number] DICTATED AND SIGNED BY: CHIDI FRANCO DO DATE: 02/27/22 1245 CC: REMBERTO LEE MD; JAMES STUBBS ~ [] Heart Score: C/O Chest Pain: No Risk Factors: Risk Factors: DM, Current or recent (<one month) smoker, HTN, HLP, family history of CAD, obesity. Risk Scores: Score 0 - 3: 2.5% MACE over next 6 weeks - Discharge Home Score 4 - 6: 20.3% MACE over next 6 weeks - Admit for Clinical Observation Score 7 - 10: 72.7% MACE over next 6 weeks - Early Invasive Strategies Course & Med Decision Making: Course & Med Decision Making Pertinent Labs and Imaging studies reviewed. (See chart for details) Discussed with institute director, Dr. Stafford, the patient's appearance of being hypotensive, diaphoretic and pale will activate Performance Makeup Artist for possible inferior STEMI. Patient accepted by hospitalist, Dr. Mccoy. Patient given aspirin, heparin, IVF, and dopamine prior to transport via EMS with some improvement of his blood pressure. Total critical care time: 45 The time involved in the performance of separately reportable/billable p rocedures was not counted toward critical care time. Due to a high probability of clinically significant, life-threatening deter ioration the patient required a high level of care to intervene emergently and I personally spent this critical time directly and personally managing the patient. The critical care time included obtaining a history, examination of the patient, assessment of vital signs, ordering and review of studies, arranging urgent treatment with development of a management plan, evaluation of patient's response to treatment, frequent reassessment, and discussions with other providers and/or family members. [] Dragon Disclaimer: Dragon Disclaimer: This electronic medical record was generated, in whole or in part, using a voice recognition dictation system. Departure Departure: Impression: Primary Impression: Inferior ST segment elevation Disposition: 02 SHORT TERM [facility]OSPITAL Condition: CRITICAL Referrals: JAMES STUBBS (PCP) REMBERTO LEE MD February 27, 2022 13:00
--- NOTE | 2022-02-27 13:06 | RAD ---
CT HEAD/BRAIN WO History: Reason: head ache / Spl. Instructions: / History: Comparison: October 21, 2016 Technique: Noncontrast CT imaging was performed of the head. Exposure: One or more of the following individualized dose reduction techniques were utilized for thi s examination: 1. Automated exposure control 2. Adjustment of the mA and/or kV according to patient size 3. Use of iterative reconstruction technique. Findings: No intracranial hemorrhage. No mass effect. No hydrocephalus. Mild foci of decreased attenuation within the hemispheric white matter, most often due to chronic breanne roischemic ischemia. Intracranial atheromatous calcifications. Imaged orbits are unremarkable. Ethmoid sinus mucosal thickening. No acute calvarial fracture. Impression: 1. No acute intracranial abnormality. Electronically signed by: Chidi Franco DO (02/27/2022 1:03 PM) [id number]
== END 2022-02-27 13:00 | disposition short-term general hospital (02) ==
LOC: ER 11:35
DX: I21.19 ST elevation (STEMI) myocardial infarction involving other coronary artery of inferior wall (principal); E11.9 Type 2 diabetes mellitus without complications; K21.9 Gastro-esophageal reflux disease without esophagitis; E78.00 Pure hypercholesterolemia, unspecified; I10 Essential (primary) hypertension; Z87.442 Personal history of urinary calculi
CPT/HCPCS: 36415; 70450; 71045; 80053; 83735; 83880; 84100; 84443; 84484; 85025; 85610; 85730; 93005; 96361; 96374; 96375; 99291; J1265; J1644; J7030